=== PATIENT | female | born 1985 | race Caucasian/White ===

== ENCOUNTER 2018-12-25 08:08 | Emergency (ER) | payer OTHER, MEDICAID | END 2018-12-25 08:44 | disposition home or self-care (01) | LOC: FTE 08:08 | DX: M79.89 Other specified soft tissue disorders (principal) | CPT/HCPCS: 99283; Z7502 ==

== ENCOUNTER 2019-01-06 17:20 | Emergency (ER) | payer OTHER | END 2019-01-06 18:17 | disposition home or self-care (01) | LOC: FTE 17:20 | DX: S60.561A Insect bite (nonvenomous) of right hand, initial encounter (principal); S60.562A Insect bite (nonvenomous) of left hand, initial encounter; W57.XXXA Bitten or stung by nonvenomous insect and other nonvenomous arthropods, initial encounter; Y92.9 Unspecified place or not applicable | CPT/HCPCS: 99282; Z7502 ==